=== PATIENT | male | born 1990 | race African-American/Black ===

== ENCOUNTER 2025-02-01 13:23 | Emergency (ER) | payer MEDICAID ==
[~2025-02-01] VITALS: Ht 172.7 cm; Wt 59.0 kg
[2025-02-01] MEDS ORDERED: Lidocaine Hydrochloride 2% 10 ML AMP SC ONE (14:05)
[2025-02-01] MEDS ORDERED: Tdap Vaccine 0.5 ML SYR (Adult Vaccine) IM ONE (14:35)
[2025-02-01] MEDS ORDERED: Bacitracin Zinc/Neomycin/Pol 15 GM TUBE T ONE (14:35)
[2025-02-01] MEDS ORDERED: CEPHALEXIN500 M1 PO (14:36)
== END 2025-02-01 14:45 | disposition home or self-care (01) ==
LOC: ED 13:23
DX: S51.811A Laceration without foreign body of right forearm, initial encounter (principal); F17.200 Nicotine dependence, unspecified, uncomplicated; W01.198A Fall on same level from slipping, tripping and stumbling with subsequent striking against other object, initial encounter; Y93.89 Activity, other specified; Y92.89 Other specified places as the place of occurrence of the external cause; Y99.8 Other external cause status